=== PATIENT | female | born 1975 | race Caucasian/White ===

== ENCOUNTER 2020-09-14 11:35 | Emergency (ER) | payer BC, SELFPAY ==
--- NOTE | 2020-09-14 11:40 | ED.GENADULT ---
HPI - General Adult General Chief complaint: Urogenital-Female Stated complaint: Possible UTI Time Seen by Provider: 09/14/20 11:40 Source: patient Mode of arrival: ambulatory Limitations: no limitations History of Present Illness HPI narrative: 45-year-old female patient presents to the [facility] with complaints of left lower back pain that started at 930 this morning. Patient states that she was standing at the counter in her kitchen and suddenly had a sharp stabbing pain to the left lower back. Patient states she has chronic back pain and does take naproxen and muscle relaxers at times for severe back pain. Patient states she has also been working from home and has been sitting in a chair and desk often. Patient states she was concerned due to the fact that she was told by a friend that it could be a kidney infection wanted to come in to make sure that it was not a kidney infection. Patient states she did take her prescribed naproxen and muscle relaxant this morning which has helped to decrease the pain. Patient denies any numbness or tingling down the legs. Denies any pain with urination. Denies any urgency or frequency. Denies any loss of bowel or bladder control. Related Data Home Medications Medication Instructions Recorded Confirmed methocarbamol 750 mg PO PRN PRN 09/14/20 09/14/20 multivitamin [Daily Multi-Vitamin] 1 tablet PO DAILY 09/14/20 09/14/20 naproxen 500 mg PO TID PRN 09/14/20 09/14/20 Allergies Allergy/AdvReac Type Severity Reaction Status Date / Time erythromycin base Allergy Unknown Unknown Verified 09/14/20 11:44 Review of Systems Review of Systems: Narrative: CONSTITUTIONAL: Denies fever, chills, or sweats. EYES: Denies visual changes, redness, or discharge. ENT: Denies rhinorrhea, congestion, sore throat, or otalgia. CARDIOVASCULAR: Denies chest pain, palpitations, or edema. RESPIRATORY: Denies cough or dyspnea. GASTROINTESTINAL: Denies abdominal pain, nausea, vomiting, or diarrhea. GENITOURINARY: Denies dysuria or hematuria. SKIN: Denies rash or itching. MUSCULOSKELETAL: Positive left low back pain, denies joint pain, or myalgia. NEUROLOGIC: Denies headache, numbness, or weakness. PSYCHIATRIC: Denies anxiety or depression. 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 There is no relevant family history pertinent to the presenting complaint. Exam Narrative: Exam Narrative: GENERAL: Well-appearing, well-nourished, and in no acute distress. HEAD: Normocephalic, atraumatic. EYES: PERRLA and EOMI. ENT: Nares clear, no rhinorrhea or epistaxis. Mucous membranes moist. NECK: Supple. No lymphadenopathy CHEST: Clear to auscultation. No respiratory distress. HEART: Regular rate and rhythm. No murmur heard. Normal peripheral pulses. ABDOMEN: Soft, nontender, nondistended, normal active bowel sounds. EXTREMITIES: Normal range of motion. No edema. BACK: Patient is able to ambulated without assistance. Pt is seated on the stretcher in no obvouis distress. No surface trauma noted. Point tenderness and muscle tenderness to Palpation of left lumbar area. Obvious spasm noted on palpation.. No step-offs or deformity noted to the cervical, thoracic or lumbar spine to firm Palpation at the midline. No CVA tenderness to percussion. No saddle anesthesia. ROM: able to stand erect. Normal flexion, extension, Lateral bending and rotation without limitation or complaint of pain. No CVA tenderness on percussion SKIN: Warm, dry, no rash. NEURO: No focal deficits. Alert and oriented x3. Course Vital Signs Vit
[2020-09-14 11:58] VITALS: BP 148/92; PULSE 103; RESP 18; TEMP 36.6; O2SAT 97
== END 2020-09-14 12:24 | disposition home or self-care (01) ==
PROVIDERS: Emergency Provider Nurse Practitioner Family; PCP Physician Assistant
DX: M62.830 Muscle spasm of back (principal)
CPT/HCPCS: 81003; 87086; 99213; G0463

== ENCOUNTER → 2021-10-17 13:29 | Outpatient (CLI) | payer BC, SELFPAY ==
--- NOTE | ~2021-10-17 | XR_ITS ---
EXAMINATION: XR hip LT min 2V DATE: 10/17/2021 14:02 INDICATION: Left hip pain. TECHNIQUE: 2 views of left hip were obtained. COMPARISON: Pelvis CT 11/05/2017 FINDINGS: Bone alignment is normal. No fracture. There is severe left hip osteoarthritis. IMPRESSION: 1. Severe left hip osteoarthritis. Reviewed, dictated and finalized at location A. ER
== END ==
PROVIDERS: PCP Physician Assistant; Visit Provider Physician Assistant
DX: M16.12 Unilateral primary osteoarthritis, left hip (principal)
CPT/HCPCS: 73502

== ENCOUNTER → 2022-11-10 08:46 | Outpatient (CLI) | payer BC, SELFPAY ==
--- NOTE | ~2022-11-10 | CT_ITS ---
EXAMINATION: CT soft tissue neck w con DATE: 11/10/2022 09:15 INDICATION: Anterior cervical lymphadenopathy. TECHNIQUE: Computed tomography (CT) of the neck was performed with 75 mL Omnipaque-350 intravenous co ntrast. Automated exposure control and iterative reconstruction technique were employed. The dose-radha gth product was 452.24 mGy-cm. COMPARISON: None FINDINGS: There are no pathologically enlarged lymph nodes. The cervical carotid arteries are normal. The paranasal sinuses are clear. There are changes of right mastoidectomy. There is mild cervical sp ondylosis. IMPRESSION: 1. No lymphadenopathy. Reviewed, dictated and finalized at location D. IMPRESSION: 1. No lymphadenopathy.
== END ==
PROVIDERS: PCP Physician Assistant; Visit Provider Physician Assistant
DX: R59.0 Localized enlarged lymph nodes (principal)
CPT/HCPCS: 70491; Q9967

== ENCOUNTER 2022-12-17 05:28 | Day surgery (SDC) | payer BC, SELFPAY ==
[2022-12-08 12:17] VITALS: BMI 47.4
--- NOTE | 2022-12-16 18:02 | PM.HPGS ---
History of Present Illness History of Present Illness Consent: Risks, benefits, and alternatives have been discussed and questions answered. Patient agrees to proceed with procedure. Chief complaint: GERD, neoplasm screening Narrative: Carmina Owens is a 47 year old female referred for investigation of chronic gastroesophageal reflux disease for which she takes omeprazole. She is also due for colon cancer screening. 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 Social History Social History Smoking packs per day: 0.5 Smoking cigarettes per day: 10.0 Years smoked: 20 Smoking pack-years: 10.00 Smoking status: Former smoker Alcohol intake: current Alcohol use details: rare Substance use: never Substance use type: does not use Living arrangements: alone Gender identity (if verbalized by the patient): Female Spiritual care concerns: No Meds Home Medications and Allergies Home Medications Medication Instructions Recorded Confirmed Type methocarbamol 750 mg tablet 750 mg PO PRN PRN Back Pain 09/14/20 12/08/22 History multivitamin (Daily Multi-Vitamin 1 tablet PO DAILY 09/14/20 12/08/22 History tablet) naproxen 500 mg tablet 500 mg PO TID PRN Muscle Pain 09/14/20 12/08/22 History omeprazole 40 mg capsule,delayed 40 mg PO DAILY 12/08/22 12/08/22 History release spironolactone 100 mg tablet 100 mg PO DAILY 12/08/22 12/08/22 History diclofenac sodium 75 mg BYMOUTH DAILY 12/11/22 12/11/22 History Allergies Allergy/AdvReac Type Severity Reaction Status Date / Time erythromycin base Allergy Unknown Unknown Verified 12/17/22 07:07 Exam Const: General: alert Orientation/consciousness: patient oriented x3 Resp: Auscultation: clear to auscultation bilaterally Cardio: Rhythm: regular rhythm GI: GI Palp: Yes Soft to palpation and No Tenderness to palpation present (GI) Neuro: General: patient oriented x3 Assessment and Plan Assessment and plan (1) GERD (gastroesophageal reflux disease): Code(s): K21.9 - Gastro-esophageal reflux disease without esophagitis Status: Acute Assessment and Plan: EGD with possible biopsy or dilatation or cautery. (2) Colon cancer screening: Code(s): Z12.11 - Encounter for screening for malignant neoplasm of colon Status: Acute Assessment and Plan: Colonoscopy with possible biopsy or polypectomy or cautery or injection of substances.
[2022-12-17 07:10] VITALS: BP 176/100; PULSE 110; RESP 20; TEMP 36.1; O2SAT 97
[2022-12-17] MEDS: LACTATED RINGERS 1,000 ML 150 ML IV CONT (07:22)
--- NOTE | 2022-12-17 07:28 | SUR.PREOP ---
PT INTO PREOP 06, PT NAUSEOUS, HOT, STATES SHE DOES NOT FEEL WELL, BEGAN VOMITING TOWARDS THE END OF HER BOWEL PREP LAST EVENING AND HAS VOMITED THIS AM. BLOOD PRESSURE ON LEFT ARM 176/100, HR 110 AND ON LEFT LOWER ARM 199/111, HR 108. DR CASPER AND WAN DONAHUE BOTH NOTIFIED. DR WILL SEE PT. 0730: PT SETTLED INTO STRETCHER WITH IV STARTED, COOL RAGS TO PT'S FOREHEAD AND NECK, BLOOD PRESSURE NOW 150/80 WITH HR 94. PT STATES FEELING BETTER WITH SOME NAUSEA. NEW ORDERS RECEIVED PER DR CASPER FOR IV ZOFRAN. PT AWARE.
--- NOTE | 2022-12-17 07:31 | WPDANESEPPF ---
Anes - Initial Pre Proc Eval Procedure: Operation Date: 12/17/22 08:00 Proposed Procedures p Esophagogastroduodenoscopy & Screening Colonoscopy - Gamaliel Vasquez MD Date/Time: 12/17/22 07:31 Surgeon: Gamaliel Vasquez MD Pre Op Diagnosis: GERD, neoplasm screening Patient Data Age: 47 Gender: F Height: 1.78 m Weight: 149.8 kg Last Vital Signs Temp 96.9 F L 12/17/22 07:10 Pulse 110 H 12/17/22 07:10 Resp 20 12/17/22 07:10 BP 176/100 H 12/17/22 07:10 Pulse Ox 97 12/17/22 07:10 O2 Del Method Room Air 12/17/22 07:10 Allergies Allergy/AdvReac Type Severity Reaction Status Date / Time erythromycin base Allergy Unknown Unknown Verified 12/17/22 07:07 Home Medications Medication Instructions Recorded Confirmed Type methocarbamol 750 mg tablet 750 mg PO PRN PRN Back Pain 09/14/20 12/08/22 History multivitamin (Daily Multi-Vitamin 1 tablet PO DAILY 09/14/20 12/08/22 History tablet) naproxen 500 mg tablet 500 mg PO TID PRN Muscle Pain 09/14/20 12/08/22 History omeprazole 40 mg capsule,delayed 40 mg PO DAILY 12/08/22 12/08/22 History release spironolactone 100 mg tablet 100 mg PO DAILY 12/08/22 12/08/22 History diclofenac sodium 75 mg BYMOUTH DAILY 12/11/22 12/11/22 History Patient hx anesthesia problems: none Family hx anesthesia problems: none Results Review: All pre-operative results and documents have been reviewed as part of the pre-operative evaluation. 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 Social History Social History Smoking packs per day: 0.5 Smoking cigarettes per day: 10.0 Years smoked: 20 Smoking pack-years: 10.00 Smoking status: Former smoker Alcohol intake: current Alcohol use details: rare Substance use: never Substance use type: does not use Living arrangements: alone Gender identity (if verbalized by the patient): Female Spiritual care concerns: No Anes - Eval Final PreProcedure Day of Procedure 12/17/22 07:31 Patient weight: morbidly obese Heart: regular rate and rhythm Lungs: clear to auscultation Airway: Mallampati scale class III Neurological: alert and oriented Last oral intake: >/= 8 hours ASA classification: III Emergent: no Anesthetic plan: proceed Anesthesia type and monitoring: general GIVS and standard monitoring Results Review: All pre-operative results and documents have been reviewed as part of the pre-operative evaluation. Informed Consent: The patient's anesthetic plan and its attendant risks and benefits were discussed with the patient/family/POA. Questions were solicited and answers provided to the satisfaction of the patient/family/POA.
[2022-12-17] MEDS: ONDANSETRON INJ 4 MG/2 ML VIAL IV PUSH (07:34)
--- NOTE | 2022-12-17 08:15 | SUR.OPER ---
EGD: Start 801, End 804 Colon: Start 811, End 831
[2022-12-17 08:36] VITALS: BP 126/87; PULSE 83; RESP 18; O2SAT 99
[2022-12-17 08:46] VITALS: BP 134/92; PULSE 85; RESP 16; O2SAT 97
[2022-12-17 08:56] VITALS: BP 141/94; PULSE 81; RESP 18; O2SAT 97
== END 2022-12-17 09:15 | disposition home or self-care (01) ==
PROVIDERS: PCP Physician Assistant; Visit Provider Internal Medicine Gastroenterology
PROC: 0DJ08ZZ Inspection of Upper Intestinal Tract, Via Natural or Artificial Opening Endoscopic (ICD-10-PCS; CPT 43235; principal; 2022-12-17 08:00)
DX: Z12.11 Encounter for screening for malignant neoplasm of colon (principal); D12.0 Benign neoplasm of cecum; K63.5 Polyp of colon; K21.9 Gastro-esophageal reflux disease without esophagitis; Z87.891 Personal history of nicotine dependence; E66.01 Morbid (severe) obesity due to excess calories; Z68.42 Body mass index [BMI] 45.0-49.9, adult
CPT/HCPCS: 45385; 45381; 43235; 88305; J2405; J2704; J7120

== ENCOUNTER → 2023-01-22 09:16 | Outpatient (CLI) | payer BC, SELFPAY ==
--- NOTE | ~2023-01-22 | US_ITS ---
EXAMINATION: US right upper quadrant DATE: 01/22/2023 09:36 INDICATION: Elevated liver enzymes level TECHNIQUE: Multiple grayscale and Doppler ultrasound images of the right upper quadrant were obtained . COMPARISON: None available. FINDINGS: The visualized portions of the pancreas are normal. The liver is echogenic, with normal ech otexture. No surface nodularity. Normal hepatopetal flow in the main portal vein. The gallbladder is normal with no abnormal wall thickening, pericholecystic fluid or stones. The common bile duct measur es 4 mm. There was no sonographic Wise sign, noting this may be confounded by concurrent use of alberto n medications. Inferior vena cava are suboptimally visualized. Portions of the upper abdominal aorta were visualized and are grossly normal. The right kidney measures 10.6 cm. IMPRESSION: Echogenic liver, most commonly due to steatosis but also can be seen with hepatitis and fibrosis. Reviewed, dictated and finalized at location K. IMPRESSION: Echogenic liver, most commonly due to steatosis but also can be seen with hepat itis and fibrosis.
== END ==
PROVIDERS: PCP Physician Assistant; Visit Provider Physician Assistant
DX: R74.01 Elevation of levels of liver transaminase levels (principal)
CPT/HCPCS: 76705

== ENCOUNTER → 2023-07-24 10:44 | Outpatient (CLI) | payer BC, SELFPAY ==
--- NOTE | ~2023-07-24 | XR_ITS ---
EXAMINATION: XR knee LT min 4V DATE: 07/24/2023 11:25 INDICATION: Left knee pain TECHNIQUE: Four views of the left knee were obtained. COMPARISON: None. FINDINGS: Alignment is normal. No fracture or osteochondral lesion. There is mild tricompartmental os teoarthritis characterized by tiny marginal osteophytes. No joint effusion/synovitis. Soft tissues a re unremarkable. IMPRESSION: 1. No acute osseous abnormality. Reviewed, dictated and finalized at location B. 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
== END ==
PROVIDERS: PCP Physician Assistant; Visit Provider Physician Assistant
DX: M25.562 Pain in left knee (principal)
CPT/HCPCS: 73564

== ENCOUNTER 2024-04-30 08:56 | Outpatient (CLI) | payer BC, SELFPAY ==
--- NOTE | ~2024-04-30 | US_ITS ---
US abdomen limited DATE: 04/30/2024 09:26 INDICATION: Elevated serum enzymes TECHNIQUE: Real-time imaging of the liver, pancreas, gallbladder COMPARISON: 01/22/2023 upper quadrant ultrasound examination FINDINGS: Increased echogenicity of the liver is noted, likely due to hepatic steatosis, with some fo latoya sparing. No focal hepatic space-occupying mass lesion is detected. No gallstones or gallbladder wall thickening. Comet artifacts are noted suggesting adenomyomatosis of the gallbladder. Negative sonographic Wise' s sign. The common bile duct measures 1.6 mm, within normal range. The pancreatic tail is obscured. The pancreas otherwise appears unremarkable. IMPRESSION: Hepatic steatosis Gallbladder adenomyomatosis suggested Reviewed, dictated and finalized at Location A. Reviewed, dictated and finalized at location A.
== END 2024-04-30 08:57 | disposition home or self-care (01) ==
LOC: MICIMG 08:56
PROVIDERS: PCP Physician Assistant; Visit Provider Physician Assistant
DX: K76.0 Fatty (change of) liver, not elsewhere classified (principal); R74.8 Abnormal levels of other serum enzymes
CPT/HCPCS: 76705